=== PATIENT | female | born 1945 | race African-American/Black ===

== ENCOUNTER 2018-04-11 16:27 | Emergency (ER) | payer OTHER ==
--- NOTE | 2018-04-11 16:32 | PDOC ---
Rapid Medical Evaluation Chief Complaint: Pain Time Seen by Provider: 04/11/18 16:29 Medical Evaluation: Allergies Allergy/AdvReac Type Severity Reaction Status Date / Time enalapril maleate Allergy Hives Verified 04/11/18 16:29 [From Vasotec] enalaprilat dihydrate Allergy Hives Verified 04/11/18 16:29 [From Vasotec] nifedipine [From Procardia] Allergy Hives Verified 04/11/18 16:29 04/11/18 16:30 This is a 72-year-old female with HTN, HLD, NIDDM with one week of left-sided dental/jaw pain with some facial swelling. No relief from Orajel, Ambesol. Presents because unable to obtain dental appointment. No fevers/chills. Alert, oriented, no distress. Mild trismus. Mild facial swelling and tenderness on left. -To FT for further evaluation
[2018-04-11 16:33] VITALS: BP 145/63; PULSE 79; TEMP 98.4; BMI 32.8
--- NOTE | 2018-04-11 16:54 | PDOC ---
History of Present Illness - General Chief Complaint: Pain Stated Complaint: FACIAL PAIN Time Seen by Provider: 04/11/18 16:29 - History of Present Illness Initial Comments: 72-year-old female with toothache for 2 weeks. She takes metformin and lisinopril for diabetes and hypertension. She has used Anbesol and Orajel without much relief. No other associated symptoms. 04/11/18 16:52 Past History - Past Medical History Allergies/Adverse Reactions: Allergies Allergy/AdvReac Type Severity Reaction Status Date / Time enalapril maleate Allergy Hives Verified 04/11/18 16:29 [From Vasotec] enalaprilat dihydrate Allergy Hives Verified 04/11/18 16:29 [From Vasotec] nifedipine [From Procardia] Allergy Hives Verified 04/11/18 16:29 Home Medications: Ambulatory Orders Aspirin [ASA -] 81 mg PO DAILY 06/08/12 Calcium 500 mg PO DAILY 06/08/12 Simvastatin [Zocor -] 40 mg PO HS 06/08/12 metFORMIN HCL [Glucophage -] 500 mg PO BID 06/08/12 Gabapentin [Neurontin -] 300 mg PO Q8H 10/29/14 Hydrocodone Bit/Homatropine [Hycodan Syrup] 5 ml PO TID PRN #10 syrup 10/29/14 Lansoprazole [Prevacid -] 30 mg PO DAILY 10/29/14 Glipizide 10 mg PO DAILY #30 tablet 08/14/16 Lisinopril [Prinivil] 20 mg PO DAILY #30 tablet 08/14/16 Amoxicillin - [Amoxicillin 500mg Capsule -] 500 mg PO BID #20 capsule 04/11/18 Cardiac Disorders: Yes (ANGINA) COPD: No Diabetes: Yes HTN: Yes Hypercholesterolemia: Yes - Surgical History Abdominal Surgery: Yes - Family Disease History Family Disease History: Heart Disease: Father - Suicide/Smoking/Psychosocial Hx Smoking Status: Yes Smoking History: Never smoked Have you smoked in the past 12 months: No Number of Cigarettes Smoked Daily: 0 If you are a former smoker, when did you quit?: 1989 Information on smoking cessation initiated: No Hx Alcohol Use: No Drug/Substance Use Hx: No Substance Use Type: None Hx Substance Use Treatment: No Review of Systems - Review of Systems HEENTM: Yes: Dental Problems All Other Systems: Reviewed and Negative *Physical Exam - Vital Signs Last Vital Signs Temp Pulse Resp BP Pulse Ox 98.4 F 79 18 145/63 100 04/11/18 16:29 04/11/18 16:29 04/11/18 16:29 04/11/18 16:29 04/11/18 16:29 - Physical Exam Comments: HEAD: NC/AT EYES: Conjuntiva clear Ears: Canals and TM's normal NOSE: No d/c THROAT: Moist mucous membrances, oral pharanx clear, uvula midline, poor dentition no focal abscess palpated NECK: Supple without adenopathy CARDIAC: S1 S2 LUNGS: CTA Full and Equal breath sounds ABDOMEN: Soft NT ND MS: Full ROM in all joints without edema NEUROLOGIC: No gross sensory or motor deficits, NVID SKIN: Normal color and temperature no lesions or rashes 04/11/18 16:52 *DC/Admit/Observation/Transfer Diagnosis at time of Disposition: Pain, dental - Discharge Dispostion Disposition: HOME Condition at time of disposition: Stable Decision to Admit order: No - Referrals Referrals: [facility] [Outside] - Patient Instructions Printed Discharge Instructions: DI for Dental Pain Additional Instructions: Or dental today. He did not need an appointment. Return to the emergency room should symptoms worsen or go unresolved. Please take the antibiotics as directed. Tylenol for pain as directed. - Post Discharge Activity
[2018-04-11] MEDS ORDERED: ACETAMINOPHEN 500 MG TABLET (FP) PO ONE (16:58)
[2018-04-11] MEDS ORDERED: ACETAMINOPHEN 500 MG TABLET (FP) ONE (16:59)
== END 2018-04-11 17:17 | disposition home or self-care (01) ==
LOC: JERFT 16:27
DX: K08.89 Other specified disorders of teeth and supporting structures (principal); I10 Essential (primary) hypertension; E78.00 Pure hypercholesterolemia, unspecified; E11.9 Type 2 diabetes mellitus without complications; Z79.84 Long term (current) use of oral hypoglycemic drugs; I20.9 Angina pectoris, unspecified
CPT/HCPCS: 99281-25

== ENCOUNTER 2018-11-23 21:01 | Emergency (ER) | payer OTHER ==
[2018-11-23 21:08] VITALS: BP 157/59; PULSE 80; TEMP 97.5; BMI 33.1
--- NOTE | 2018-11-23 21:53 | PDOC ---
History of Present Illness - General Chief Complaint: Pain, Acute Stated Complaint: pain inthe right shoulder Time Seen by Provider: 11/23/18 21:36 - History of Present Illness Initial Comments: 11/23/18 21:50 73-year-old female with a past medical history significant for hypertension and diabetes presents for evaluation of right arm pain and neck pain 2 weeks without systemic symptoms. Past History - Past Medical History Allergies/Adverse Reactions: Allergies Allergy/AdvReac Type Severity Reaction Status Date / Time enalapril maleate Allergy Hives Verified 11/23/18 21:08 [From Vasotec] enalaprilat dihydrate Allergy Hives Verified 11/23/18 21:08 [From Vasotec] nifedipine [From Procardia] Allergy Hives Verified 11/23/18 21:08 Home Medications: Ambulatory Orders Aspirin [ASA -] 81 mg PO DAILY 06/08/12 Calcium 500 mg PO DAILY 06/08/12 Simvastatin [Zocor -] 40 mg PO HS 06/08/12 metFORMIN HCL [Glucophage -] 500 mg PO BID 06/08/12 Gabapentin [Neurontin -] 300 mg PO Q8H 10/29/14 Hydrocodone Bit/Homatropine [Hycodan Syrup] 5 ml PO TID PRN #10 syrup 10/29/14 Lansoprazole [Prevacid -] 30 mg PO DAILY 10/29/14 Glipizide 10 mg PO DAILY #30 tablet 08/14/16 Lisinopril [Prinivil] 20 mg PO DAILY #30 tablet 08/14/16 Amoxicillin - [Amoxicillin 500mg Capsule -] 500 mg PO BID #20 capsule 04/11/18 Cyclobenzaprine HCl [Flexeril 10 mg] 10 mg PO HS PRN #10 tablet 11/23/18 Methylprednisolone [Medrol Dose Geovany] 4 mg PO ASDIR #21 tablet 11/23/18 Cardiac Disorders: Yes (ANGINA) COPD: No Diabetes: Yes HTN: Yes Hypercholesterolemia: Yes - Surgical History Abdominal Surgery: Yes - Family Disease History Family Disease History: Heart Disease: Father - Suicide/Smoking/Psychosocial Hx Smoking Status: Yes Smoking History: Never smoked Have you smoked in the past 12 months: No Number of Cigarettes Smoked Daily: 0 If you are a former smoker, when did you quit?: 1989 Hx Alcohol Use: No Drug/Substance Use Hx: No Substance Use Type: None Hx Substance Use Treatment: No Review of Systems - Review of Systems Constitutional: No: Fever Musculoskeletal: Yes: Neck Pain Neurological: Yes: See HPI, Tingling, Weakness *Physical Exam - Vital Signs Last Vital Signs Temp Pulse Resp BP Pulse Ox 97.5 F L 80 18 157/59 L 98 11/23/18 21:06 11/23/18 21:06 11/23/18 21:06 11/23/18 21:06 11/23/18 21:06 - Physical Exam Comments: 11/23/18 21:51 Cervical spine skin color and temperature are normal. Range of motion is limited. There is no midline tenderness. There is moderate right-sided paracervical musculature spasm and tenderness as well as trapezium musculature spasm and tenderness. There is 4 out of 5 youth leader strength on the right 5 out of 5 on the left 5 out of 5 risk flexion and extension as well as finger abduction. Exquisitely positive Spurling maneuver is producing radiculopathy down the right arm. No gross sensorimotor deficits. She is neurovascularly intact. Medical Decision Making - Medical Decision Making 11/23/18 21:52 I will treat her cervical radiculopathy with a Medrol Dosepak and Flexeril. I' ve instructed on the use of the Medrol Dosepak and Flexeril. She understands this may raise her blood sugar she will adjust her diet and medication accordingly. *DC/Admit/Observation/Transfer Diagnosis at time of Disposition: Cervical radiculopathy - Discharge Dispostion Disposition: HOME Condition at time of disposition: Stable Decision to Admit order: No - Prescriptions Prescriptions: Cyclobenzaprine HCl [Flexeril 10 mg] 10 mg PO HS PRN #10 tablet PRN Reason: Muscle Spasms Methylprednisolone [Medrol Dose Geovany] 4 mg PO ASDIR #21 tablet - Referrals Referrals: Vimal Cardenas MD [Staff Physician] - - Patient Instructions Printed Discharge Instructions: DI for Cervical Radiculopathy Additional Instructions: Please take the Medrol Dosepak as directed. And started tomorrow morning. The Flexeril as one tablet before bedtime he makes start that this evening. Return to the emergency room for worsening symptoms and follow-up with orthopedic spine surgery in 1-2 days for further evaluation and treatment options. - Post Discharge Activity
== END 2018-11-23 22:00 | disposition home or self-care (01) ==
LOC: JERFT 21:01
DX: M54.12 Radiculopathy, cervical region (principal); Z87.891 Personal history of nicotine dependence; I10 Essential (primary) hypertension; E11.9 Type 2 diabetes mellitus without complications; E78.00 Pure hypercholesterolemia, unspecified; I20.9 Angina pectoris, unspecified
CPT/HCPCS: 99281-25